=== PATIENT | male | born 1985 | race African-American/Black ===

== ENCOUNTER 2017-01-05 11:41 | Emergency (ER) | payer MEDICAID ==
[~2017-01-05 11:41] MED LIST: FIORICET 50-301 EACH PO; FIORICET 50-321 EACH PO; HYDROCODON-ACE1 EACH PO; IMITREX PO; IMITREX25 MG PO; NO MEDICATIONS; PHENERGAN25 MG PO; VICODIN PO
== END 2017-01-05 11:54 | disposition home or self-care (01) ==
LOC: CED 11:41
DX: G43.909 Migraine, unspecified, not intractable, without status migrainosus (principal); Z98.890 Other specified postprocedural states
CPT/HCPCS: 36415; 96374; 96375; 99284; J0780; J1100; J1200; J1885

== ENCOUNTER 2017-01-07 23:59 | Emergency (ER) | payer MEDICAID | END 2017-01-08 01:55 | disposition home or self-care (01) | LOC: CED 23:59 | DX: G43.909 Migraine, unspecified, not intractable, without status migrainosus (principal) | CPT/HCPCS: 96361; 96374; 99284; J1885 ==

== ENCOUNTER 2017-01-11 14:48 | Emergency (ER) | payer MEDICAID ==
[2017-01-11 14:16] LABS: BASOPHIL% 0.5 % (0-2.5); EOSINOPHIL% 0.5 % (0.0-7.0); HEMATOCRIT 47.6 % (38.0-50.0); HEMOGLOBIN 15.5 gm/dL (13.0-16.0); LYMPHOCYTE# 0.9 X10e3 (1.0-3.5); LYMPHOCYTE% 18.9 % (17.0-45.0); MEAN CORPUSCULAR HEMOGLOBIN 28.7 PG (28-34); MEAN CORPUSCULAR HGB CONC 32.6 g/dL (30-36); MEAN PLATELET VOLUME 8.7 FL (6.5-11.5); MONOCYTE# 0.3 X10e3 (0-1.0); MONOCYTE% 5.7 % (3.0-12.0); NEUTROPHIL# 3.6 X10e3 (1.5-7.1); NEUTROPHIL% 74.4 % (40-75); PLATELET COUNT 242 X10e3 (140-420); RED BLOOD COUNT 5.41 X10e (3.90-5.60); RED CELL DISTRIBUTION WIDTH 15.3 % (11.0-15.5); WHITE BLOOD COUNT 4.8 X10e3 (4.0-10.5)
[2017-01-11 14:23] LABS: URINE SOURCE CLEAN CATCH
[2017-01-11 14:29] LABS: URINE APPEARANCE CLOUDY; URINE BILIRUBIN NEG (NEG); URINE BLOOD NEG (NEG); URINE COLOR DK YELLOW; URINE GLUCOSE NEG (NEG); URINE KETONE NEG (NEG); URINE LEUKOCYTE ESTERASE NEG (NEG); URINE NITRATE NEG (NEG); URINE PH 7.5 (5-8); URINE PROTEIN NEG (NEG); URINE UROBILINOGEN 0.2 MG/DL (NEG)
[2017-01-11 14:29] LABS: DIFF IND NO
[2017-01-11 14:40] LABS: CALCIUM SERUM 9.5 mg/dL (8.4-10.2); CREATININE SERUM 1.2 mg/dL (0.6-1.4); GLOM FILT RATE Estimated 93.5 mL/min (>60); POTASSIUM 3.8 mmol/L (3.5-5.1)
[2017-01-11 14:42] LABS: CULTURE INDICATED? NO
[2017-01-11 14:50] LABS: AMPHETAMINE NEG (NEG); BARBITURATES NEG (NEG); BENZODIAZEPINES NEG (NEG); COCAINE NEG (NEG); MARIJUANA POS (NEG); OPIATES NEG (NEG); TRICYCLIC ANTIDEPRESSANTS NEG (NEG); U METHADONE NEG (NEG)
== END 2017-01-11 16:46 | disposition home or self-care (01) ==
LOC: CED 14:48
PROVIDERS: Student in an Organized Health Care Education/Training Program
DX: G43.909 Migraine, unspecified, not intractable, without status migrainosus (principal)
CPT/HCPCS: 36415; 80048; 80307; 81003; 85025; 96361; 96374; 96375; 99284; J0780; J1200; J1885

== ENCOUNTER 2017-01-26 05:50 | Emergency (ER) | payer MEDICAID | END 2017-01-26 06:00 | disposition home or self-care (01) | LOC: CED 05:50 | DX: G44.019 Episodic cluster headache, not intractable (principal); Z87.442 Personal history of urinary calculi; Z98.890 Other specified postprocedural states | CPT/HCPCS: 96372; 99283; J3030 ==